=== PATIENT | female | born 1995 | race Caucasian/White ===

== ENCOUNTER 2018-12-25 19:45 | Emergency (ER) | payer BC, MEDICAID ==
[~2018-12-25] VITALS: Ht 170.2 cm; Wt 74.8 kg
--- NOTE | 2018-12-25 19:54 | NUR ---
PT BIBHUSBAND FROM HOME FOR ABD PAIN AND BACK PAIN; PT [id number], PT ON MONITOR, VSS, PENDING ER PROVIDER CRISTELA
[2018-12-25 20:13] LABS: BASOPHILS % (AUTO) 0.3 % (0.0-2.0); EOSINOPHILS % (AUTO) 0.5 % (0.0-6.0); HEMATOCRIT 39 % (33-45); HEMOGLOBIN 13.2 g/dL (11.5-14.8); LYMPHOCYTES # (AUTO) 1.8 /CMM (0.8-4.8); MEAN CORPUSCULAR HGB CONC 34 g/dl (31.0-36.0); MEAN CORPUSCULAR VOLUME 83 fL (82-100); MONOCYTES # (AUTO) 0.8 /CMM (0.1-1.30); MONOCYTES % (AUTO) 9.3 % (2.0-12.0); NEUTROPHILS # (AUTO) 5.8 /CMM (1.8-8.9); NEUTROPHILS % (AUTO) 68.9 % (43.0-81.0); PLATELET COUNT (AUTO) 205 /CMM (150-450); WHITE BLOOD COUNT (AUTO) 8.5 K/uL (4.3-11.0)
[2018-12-25 20:14] LABS: APPEARANCE,URINE Clear (CLEAR); BILIRUBIN,URINE Negative (NEGATIVE); BLOOD, URINE Negative Ery/uL (NEGATIVE); COLOR,URINE Yellow (YELLOW); KETONES,URINE Negative (NEGATIVE); LEUKOCYTE ESTERASE ,URINE Negative (NEGATIVE); NITRITE, URINE Negative (NEGATIVE); PROTEIN,URINE Negative (NEGATIVE); UGLUCOSE Negative (NEGATIVE); UROBILINOGEN,URINE 0.2 EU/dL (0.2)
[2018-12-25 20:21] LABS: CALCIUM, SERUM 9.2 mg/dL (8.5-10.1); CREATININE 0.6 mg/dL (0.6-1.3); POTASSIUM 3.5 mmol/L (3.5-5.1)
[2018-12-25 20:27] LABS: BILIRUBIN,DIRECT 0.1 mg/dL (0.0-0.2); BILIRUBIN,TOTAL 0.2 mg/dL (0.2-1.0); TOTAL PROTEIN, SERUM 7.7 g/dL (6.4-8.2)
--- NOTE | 2018-12-25 22:24 | NUR ---
Patient discharged to home in stable condition. Written and verbal after care instructions given. Patient verbalizes understanding of instruction. Patient left facility on foot with steady gait. No s/s of acute distress or sob noted. Pt left with at side. VS stable.
[2018-12-25 22:26] VITALS: BP 122/68
== END 2018-12-25 22:27 | disposition home or self-care (01) ==
LOC: ER 19:45
DX: O26.891 Other specified pregnancy related conditions, first trimester (principal); R10.32 Left lower quadrant pain; R10.31 Right lower quadrant pain; Z3A.01 Less than 8 weeks gestation of pregnancy
CPT/HCPCS: 36415; 76856; 80048; 80076; 81001; 84702; 84703; 85025; 99284; A4606; 81000-TC

== ENCOUNTER 2024-05-19 23:03 | Emergency (ER) | payer BC, OTHER ==
[~2024-05-19] VITALS: Ht 167.6 cm; Wt 68.0 kg
[2024-05-20] MEDS: KETOROLAC TROMETHAMINE INJ 60 MG/2 ML VIAL IM ONE (00:22)
[2024-05-20 00:24] VITALS: BP 117/63; TEMP 98.1; O2SAT 98
== END 2024-05-20 00:26 | disposition left against medical advice (07) ==
LOC: EDUNIT# 23:03 → ER 23:10
DX: M54.2 Cervicalgia (principal); M54.50 Low back pain, unspecified; V43.52XA Car driver injured in collision with other type car in traffic accident, initial encounter; Y93.89 Activity, other specified; Y92.488 Other paved roadways as the place of occurrence of the external cause; Y99.8 Other external cause status